=== PATIENT | male | born 1965 | race Caucasian/White ===

== ENCOUNTER → 2016-06-24 | Outpatient (CLI) | payer OTHER ==
[~2016-06-24] MED LIST: AUGMENTIN875 MG PO; BENADRYL-DPS25 MG PO; COMPAZINE DPS5 MG PO; CUBICIN500 MG IV; MAALOX DPS30 ML PO; MILK OF MAGNESI10 ML PO; MOTRIN-DPS800 MG PO; SENOKOT S1 TAB PO; TYLENOL DPS325 MG PO
== END | disposition home or self-care (01) ==
LOC: PTH.S 09:14 → FOLLOW 09:14
DX: M25.511 Pain in right shoulder (principal)